=== PATIENT | male | born 1950 | race Caucasian/White ===

== ENCOUNTER → 2024-01-08 | Outpatient (CLI) | payer OTHER, SELFPAY ==
--- NOTE | 2024-01-08 10:52 | ECHOD_ITS ---
Reason For Study: CAD/ASHD Procedure This was a 2D Doppler, Color Flow transthoracic echocardiogram. Exam performed in department. Left Ventricle Normal LV size. Left ventricular systolic function is lower limits of normal. The estimated ejection fraction is 53 %. Stage 2 diastolic dysfunction. No regional wall motion abnormalities noted. Right Ventricle Normal RV size. Normal systolic function. Atria Normal left atrium. Normal right atrium. Mitral Valve Normal mitral valve. Tricuspid Valve Normal tricuspid valve. Mild tricuspid valve insufficiency. Pulmonary artery systolic pressure is 32 mmHg. Aortic Valve Trisinus/trileaflet aortic valve. Mild focal aortic valve calcification. Pulmonic Valve Normal pulmonic valve. Trivial pulmonic valve insufficiency. Great Vessels Normal aortic root. The pulmonary artery is normal size. Inferior vena cava collapse with respiration. Pericardium/Pleural No pericardial effusion. MMode/2D Measurements & Calculations LVIDd: 5.0 cm IVSd: 0.94 cm Ao root diam: 3.2 cm LVIDs: 3.8 cm LVPWd: 1.0 cm RVDd: 3.8 cm FS: 24.7 % LAV(MOD-bp): 37.8 ml LVAd ap4: 31.4 cm2 SV(MOD-sp4): 54.9 ml LAV(MOD-bp) Indexed: 20.2 ml/m2 LVLd ap4: 7.8 cm LAV(MOD-sp2): 39.0 ml EDV(MOD-sp4): 106.5 ml LAV(MOD-sp4): 34.3 ml EDV(sp4-el): 107.4 ml LVAs ap4: 20.0 cm2 LVLs ap4: 6.6 cm ESV(MOD-sp4): 51.6 ml ESV(sp4-el): 51.2 ml EF(MOD-sp4): 51.5 % EF(sp4-el): 52.3 % SV(sp4-el): 56.2 ml LA A4 area: 14.9 cm2 LA dimension(2D): 3.4 cm RA A4 area: 13.6 cm2 TAPSE: 1.8 cm Time Measurements MV dec time: 0.20 sec Doppler Measurements & Calculations MV E max alex: 75.6 cm/sec Lat Peak E' Alex: 10.7 cm/sec Med Peak E' Alex: 10.0 cm/sec MV A max alex: 70.8 cm/sec E/E' lat: 7.1 E/E' med: 7.6 MV E/A: 1.1 Ao V2 max: 113.4 cm/sec LV V1 max: 93.7 cm/sec PA V2 max: 106.4 cm/sec Ao max P.1 mmHg LV V1 max P.5 mmHg TR max alex: 264.1 cm/sec TR max P.9 mmHg ECHO/Echo Complete Interpretation Summary Normal LV size. Left ventricular systolic function is lower limits of normal. The estimated ejection fraction is 53 %. Stage 2 diastolic dysfunction. The global longitudinal strain is mildly abnormal. The global longitudinal stra in = -16.2% (abnormal). Ordering Physician: Jose Leyva Referring Physician: KIRSTEN ORELLANA Performed By: Jaylin Gomez RDCS
[2024-01-08 13:28] LABS: ALB/GLOB Ratio 0.9 RATIO (0.9-2.4); AST(SGOT) 18 U/L (15-37); Alanine Aminotransfer ALT/SGPT 21 U/L (16-61); Albumin, Serum 3.5 g/dL (3.2-5.0); Alkaline Phosphatase 123 U/L (45-117); Anion Gap 5 (5-15); BUN 17 mg/dL (7-18); BUN/Creat Ratio 16.2 RATIO (10-20); Calcium,Total 8.8 mg/dL (8.5-10.1); Chloride 108 mmol/L (98-107); Creatinine, Serum 1.05 mg/dL (0.70-1.30); EST Glomerular Filtration Rate 73 mL/min (>60); Est Glom Filt Rate - Afr Amer 88 mL/min (>60); Globulin 3.7 g/dL (2.2-4.2); Glucose 99 mg/dL (74-106); Potassium 4.1 mmol/L (3.5-5.1); Protein, Total 7.2 g/dL (6.4-8.2); Sodium Level 141 mmol/L (136-145)
[2024-01-08 13:37] LABS: Hepatitis C Antibody Non-Reactive (Nonreactive)
--- OUTSIDE RECORDS SUMMARY | 2024-01-08 19:09 | XMS RPT_ITS | CCD ---
Author Name Unknown Address [address] [facility] [address] [place] [address] Organization [facility] Care Team Providers Care Manager Operations Name Role Phone Lamonte Orellana Primary Care Provider [phone] Lamonte Orellana Unavailable Unavailable Lamonte Orellana Primary Care Provider Dandy Conroy Unavailable Mcginnis II, Mina Unavailable Unavailable Lamonte Orellana Unavailable Unavailable Unavailable Lamonte Orellana Unavailable Moomaw, Leland I Unavailable Unavailable CarlosessJessaBrandon Unavailable Mcginnis, Mina Unavailable Lamonte Orellana MD Primary Care Provider Dandy Conroy MD Unavailable [phone] DANDY CONROY Referring Unavailable DANDY CONROY Attending Unavailable LAMONTE ORELLANA Primary Care UnavailDANDY Valente Attending Unavailable LAMONTE ORELLANA Primary Care UnavailDANDY Valente Attending Unavailable LAMONTE ORELLANA Primary Care UnavailDANDY Valente Attending Unavailable LAMONTE ORELLANA Primary Care UnavailLamonte Reynoso MD Primary Care Provider [phone] Lamonte Orellana MD Unavailable Dr. Lamonte Orellana Primary Care Unav ailable VAMSHI BARON Attending Unavailable VAMSHI BARON Attending Unavailable Dr. Lamonte Orellana Primary Care Unav ailLAMONTE aShu Primary Care Unavailable Alem Wilcox Attending Unavailable Bennett Butler, Dr. Vamshi Hernandez Referring Unavailable Riki, Dr. Lamonte Flores Primary Care Unav ailable Riki, Dr. Lamonte Flores Primary Care Unav ailable Bennett Butler, Dr. Vamshi Hernandez Attending Unavailable Bennett Butler, Dr. Vamshi Hernandez Referring Unavailable Riki, Dr. Lamonte Flores Primary Care Unav ailable Riki, Dr. Lamonte Flores Referring Unav ailable Bennett Butler, Dr. Vamshi Hernandez Attending Unavailable Lamonte Orellana MD Unavailable [phone] Lamonte Orellana MD Primary Care Provider ALEM WILCOX Attending Unavailable LAMONTE ORELLANA Primary Care Unavailable LAMONTE ORELLANA Attending Unavailable LAMONTE ORELLANA Primary Care Unavailable ALEM WILCOX Referring Unavailable LAMONTE ORELLANA Primary Care Unavailable Medications Current Medications Medication Drug Class(es) Dates Sig (Normalized) Sig (Original) aspirin 81 mg delayed release oral tablet (20 sources) Platelet Aggregation Inhibitor, Nonsteroidal Anti-inflammatory Drug Start: 09-20-2019 take 1 tablet by mouth once daily aspirin 81 mg EC tablet Take 1 tablet (81 mg) by mouth once daily. 0 09/20/2019 Active Completed/Discontinued Medications Medication Drug Class(es) Dates Sig (Normalized) Sig (Original) acetaminophen 325 mg / HYDROcodone bitartrate 5 mg oral tablet (1 source) Opioid Agonist Start: 03-14-2020 take 1 tablet by mouth every six hours as needed [place] 5 mg-325 mg oral tablet ; 1 tab(s) orally every 6 hours, As Needed Quantity: 24 Refills: 0 Ordered: 14-Mar-2020 McginnisMina banuelos Start: 14-Mar-2020 Status: Completed Generic Substitution Allowed Comments: Caution federal law prohibits the transfer of this drug to any person other than the person for whom it was prescribed.May cause drowsiness. Alcohol may intensify this effect. Use care when operating dangerous machinery.This product contains acetaminophen. Do not use with any other product containing acetaminophen to prevent possible liver damage.Using more of this medication than prescribed may cause serious breathing problems. Problems Active Problems Problem Classification Problem Date Documented Date Episodic/Chronic Aortic; peripheral; and visceral artery aneurysms (18 sources) Abdominal aortic aneurysm without rupture; Translations: [Abdominal aortic aneurysm, without rupture] Onset: 06-18-2021 Resolved: 04-03-2023 Chronic Cancer of bladder (20 sources) Malignant tumor of urinary bladder; Translations: [Malignant neoplasm of bladder, part unspecified] Onset: 03-27-2023 04-03-2023 Chronic Coronary atherosclerosis and other heart disease (20 sources) Coronary arteriosclerosis in [place] artery; Translations: [Coronary arteriosclerosis] Onset: 07-19-2019 Resolved: 04-03-2023 07-19-2019 Chronic Diseases of mouth; excluding dental (1 source) Bleeding from mouth; Translations: [Other and unspecified diseases of the oral soft tissues] 06-15-2021 Episodic Disorders of lipid metabolism (20 sources) Mixed hyperlipidemia; Translations: [Hyperlipidemia] Onset: 03-27-2023 Resolved: 04-03-2023 05-29-2020 Chronic Esophageal disorders (20 sources) Gastroesophageal reflux disease; Translations: [Esophageal reflux] Onset: 03-27-2023 04-03-2023 Chronic Essential hypertension (20 sources) Benign essential hypertension; Translations: [Essential hypertension] Onset: 06-29-2021 Resolved: 04-03-2023 05-29-2020 Chronic Hyperplasia of prostate (20 sources) Benign prostatic hyperplasia; Translations: [Hypertrophy (benign) of prostate without urinary obstruction and other lower urinary tract symptom (LUTS)] Onset: 03-27-2023 04-03-2023 Chronic Inflammatory conditions of male genital organs (18 sources) Balanitis; Translations: [Balanoposthitis] Onset: 04-02-2023 04-02-2023 Chronic Osteoarthritis (20 sources) Osteoarthritis; Translations: [Osteoarthrosis, unspecified whether generalized or localized, site unspecified] Onset: 03-27-2023 03-27-2023 Chronic Peripheral and visceral atherosclerosis (1 source) Atherosclerosis of renal artery; Translations: [Atherosclerosis of renal artery] Onset: 12-10-2022 Chronic Unclassified (1 source) History of cardiac catheterization; Translations: [Status post left heart catheterization] Unclassified (2 sources) SWALLOWING BLOOD 06-15-2021 Past or Other Problems Problem Classification Problem Date Documented Da te Episodic/Chronic Biliary tract disease (11 sources) Gallstone; Translations: [Calculus of gallbladder without mention of cholecystitis, without mention of obstruction] Onset: 12-10-2022 04-02-2023 Episodic Blindness and vision defects (4 sources) Bilateral regular astigmatism; Translations: [Regular astigmatism, bilateral] Onset: 06-29-2021 04-02-2023 Episodic Calculus of urinary tract (20 sources) Kidney stone; Translations: [Calculus of kidney] Onset: 12-10-2022 04-02-2023 Episodic Cardiac dysrhythmias (5 sources) Bradycardia; Translations: [Bradycardia, unspecified] Onset: 06-18-2021 Episodic Gastrointestinal hemorrhage (2 sources) Hematochezia; Translations: [Melena] Onset: 12-26-2008 04-02-2023 Episodic Genitourinary symptoms and ill-defined conditions (20 sources) Blood in urine; Translations: [Hematuria, unspecified] Onset: 04-02-2023 04-02-2023 Episodic Neoplasms of unspecified nature or uncertain behavior (19 sources) Neoplasm of bladder; Translations: [Neoplasm of unspecified nature of bladder] Onset: 04-02-2023 Resolved: 04-03-2023 04-03-2023 Episodic Other eye disorders (2 sources) H/O: L cataract extraction; Translations: [Cataract extraction status, left eye] Onset: 08-10-2021 04-02-2023 Episodic Other eye disorders (2 sources) H/O: R cataract extraction; Translations: [Cataract extraction status, right eye] Onset: 08-10-2021 04-02-2023 Episodic Other screening for suspected conditions (not mental disorders or infectious disease) (20 sources) Stool DNA-based colorectal cancer screening positive; Translations: [Abnormal feces] Onset: 09-28-2018 04-02-2023 Episodic Other skin disorders (17 sources) Feeling of lump in throat; Translations: [Swelling, mass, or lump in head and neck] Onset: 04-02-2023 04-02-2023 Episodic Residual codes; unclassified (17 sources) Persistent insomnia; Translations: [Persistent disorder of initiating or maintaining sleep] Onset: 04-02-2023 04-02-2023 Episodic Unclassified (7 sources) Patient encounter status; Translations: [Colon cancer screening] Unclassified (2 sources) Onset: 04-03-2023 04-03-2023 Unclassified (1 source) Abdominal aortic aneurysm, without rupture, unspecified; Translations: [Abdominal aortic aneurysm, without rupture, unspecified] Onset: 12-10-2022 Unclassified (2 sources) Abdominal aortic aneurysm, without rupture, unspecified (CMS/HCC); Translations: [Abdominal aortic aneurysm, without rupture, unspecified (CMS/HCC)] Onset: 10-09-2023 NEGATED: Highlighted row has not occurred!Residual codes; unclassified (6 sources) Disease Episodic Results Test Name Value Interpretation Reference Range Facil ity Vital Signs Date Time Vital Sign Value Performing Clinician Faci lity 04-21-2023 13:02-0400 Body height 172.72 cm Lamonte Orellana Work Phone: BG-Tsqbzfdxgd-Ibkpb nd [address] Work Phone: 04-21-2023 13:02-0400 Body mass index (BMI) [Ratio] 24.48 kg/m2 Lamonte Orellana Work Phone: IP-Lvzilkktys-Dxahp nd [address] Work Phone: 04-21-2023 13:02-0400 Body surface area Derived from formula 1.86 m2 Lamonte Orellana Work Phone: QI-Qrlmcjqiuu-Gxffj nd [address] Work Phone: 04-21-2023 13:02-0400 Body weight 73.03 kg Lamonte Orellana Work Phone: YD-Qrnaghlbbt-Mmqew nd [address] Work Phone: 04-21-2023 13:02-0400 Diastolic blood pressure 60 mm[Hg] Lamonte Orellana Work Phone: QV-Olnuivqevb-Iidyf nd [address] Work Phone: 04-21-2023 13:02-0400 Heart rate 73 /min Lamonte Orellana Work Phone: AK-Bzicxbdvjf-Fyjkn nd [address] Work Phone: 04-21-2023 13:02-0400 SaO2% (BldA) [Mass fraction] 96 % Lamonte Orellana Work Phone: QR-Eudxdphshm-Tomjh ne [address] Work Phone: 04-21-2023 13:02-0400 Systolic blood pressure 112 mm[Hg] Lamonte Orellana Work Phone: MM-Cughdwmnom-Ohqwg ne [address] Work Phone: 04-03-2023 10:06-0400 Body height 172.7 cm Lamonte Orellana MD Work Phone: [facility] 04-03-2023 10:06-0400 Body mass index (BMI) [Ratio] 24.54 kg/m2 Lamonte Orellana MD Work Phone: [facility] 04-03-2023 10:06-0400 Body weight 73.21 kg Lamonte Orellana MD Work Phone: [facility] 04-03-2023 10:06-0400 Diastolic blood pressure 70 mm[Hg] Lamonte Orellana MD Work Phone: [facility] 04-03-2023 10:06-0400 Heart rate 55 /min Lamonte Orellana MD Work Phone: [facility] 04-03-2023 10:06-0400 SaO2% (BldA) [Mass fraction] 96 % Lamonte Orellana MD Work Phone: [facility] 04-03-2023 10:06-0400 Systolic blood pressure 120 mm[Hg] Lamonte Orellana MD Work Phone: [facility] 10-22-2022 10:31-0500 Body height 172.72 cm Lamonte Orellana Work Phone: ES-Dggnviihiu-Ygqex [address] Work Phone: 10-22-2022 10:31-0500 Body mass index (BMI) [Ratio] 25.24 kg/m2 Lamonte Orellana Work Phone: MB-Njgzxjjgqm-Ryqat nd [address] Work Phone: 10-22-2022 10:31-0500 Body surface area Derived from formula 1.89 m2 Lamonte Orellana Work Phone: IA-Eqbjzoaaqe-Gqvfc nd [address] Work Phone: 10-22-2022 10:31-0500 Body weight 75.3 kg Francoisvince Orellana Work Phone: XJ-Lmbmpoahup-Kmmxs nd [address] Work Phone: 10-22-2022 10:31-0500 Diastolic blood pressure 78 mm[Hg] Francoisvince Orellana Work Phone: OL-Oghdefgwdk-Ecgpq nd [address] Work Phone: 10-22-2022 10:31-0500 Heart rate 66 /min Francoisvince Orellana Work Phone: MX-Rzmqbtvhkd-Oepex nd [address] Work Phone: 10-22-2022 10:31-0500 SaO2% (BldA) [Mass fraction] 99 % Lamonte Orellana Work Phone: VQ-Ueszamrtre-Lmiuu nd [address] Work Phone: 10-22-2022 10:31-0500 Systolic blood pressure 136 mm[Hg] Francoisvince Nadia Orellana Work Phone: LI-Ombkthkxye-Sdtnm nd [address] Work Phone: 04-23-2022 11:23-0400 Body height 172.72 cm Francoisvince Nadia Orellana Work Phone: YG-Psclhhnbfs-Swmve [address] Work Phone: 04-23-2022 11:23-0400 Body mass index (BMI) [Ratio] 24.63 kg/m2 Francoisvince Nadia Orellana Work Phone: RV-Jmdkwcfsaj-Xmjbj [address] Work Phone: 04-23-2022 11:23-0400 Body surface area Derived from formula 1.87 m2 Lamonte Orellana Work Phone: NZ-Gtmryzrego-Ghevz [address] Work Phone: 04-23-2022 11:23-0400 Body weight 73.48 kg Lamonte Orellana Work Phone: CT-Osrxozvxhq-Liylk [address] Work Phone: 04-23-2022 11:23-0400 Diastolic blood pressure 78 mm[Hg] Lamonte Orellana Work Phone: PH-Fnufenklre-Ejpwi [address] Work Phone: 04-23-2022 11:23-0400 Heart rate 56 /min Lamonte Orellana Work Phone: SY-Byegrhbfjn-Ohuld [address] Work Phone: 04-23-2022 11:23-0400 SaO2% (BldA) [Mass fraction] 98 % Lamonte Orellana Work Phone: AW-Rwhkjhnqkt-Iwknm [address] Work Phone: 04-23-2022 11:23-0400 Systolic blood pressure 140 mm[Hg] Lamonte Orellana Work Phone: VJ-Udgskwunyk-Qxchv [address] Work Phone: 04-03-2022 09:05-0400 Body height 170.18 cm Lamonte Orellana Work Phone: -[facility] Work Phone: 04-03-2022 09:05-0400 Body mass index (BMI) [Ratio] 25.4 kg/m2 Lamonte Orellana Work Phone: -[facility] Work Phone: 04-03-2022 09:05-0400 Body surface area Derived from formula 1.85 m2 Lamonte Orellana Work Phone: [employer] [facility] Work Phone: 04-03-2022 09:05-0400 Body weight 73.57 kg Lamonte Orellana Work Phone: [employer] [employer] [facility] Work Phone: 04-03-2022 09:05-0400 Diastolic blood pressure 80 mm[Hg] Lamonte Orellana Work Phone: [facility] [employer] [facility] Work Phone: 04-03-2022 09:05-0400 Heart rate 57 /min Lamonte Orellana Work Phone: [employer] [facility] Work Phone: 04-03-2022 09:05-0400 SaO2% (BldA) [Mass fraction] 97 % Lamonte Orellana Work Phone: [employer] [employer] [facility] Work Phone: 04-03-2022 09:05-0400 Systolic blood pressure 150 mm[Hg] Lamonte Orellana Work Phone: [employer] [facility] Work Phone: 03-27-2022 11:03-0400 Body height 170.18 cm Lamonte Orellana Work Phone: [employer] [employer] [facility] Work Phone: 03-27-2022 11:03-0400 Body mass index (BMI) [Ratio] 25.55 kg/m2 Lamonte Orellana Work Phone: [employer] [facility] Work Phone: 03-27-2022 11:03-0400 Body surface area Derived from formula 1.85 m2 Lamonte Orellana Work Phone: [employer] [facility] Work Phone: 03-27-2022 11:03-0400 Body weight 74 kg Lamonte Orellana Work Phone: [employer] Work Phone: 03-27-2022 11:03-0400 Diastolic blood pressure 74 mm[Hg] Lamonte Orellana Work Phone: [facility] Work Phone: 03-27-2022 11:03-0400 Heart rate 70 /min Lamonte Orellana Work Phone: [facility] Work Phone: 03-27-2022 11:03-0400 Systolic blood pressure 129 mm[Hg] Lamonte Orellana Work Phone: [facility] [employer] [facility] Work Phone: 10-24-2021 10:27-0500 Body height 170.18 cm Lamonte Orellana Work Phone: OD-Gdpgdrx-Vcbzydr Work Phone: 10-24-2021 10:27-0500 Body mass index (BMI) [Ratio] 25.86 kg/m2 Lamonte Orellana Work Phone: BX-Ezqkvtu-Ikiqvqz Work Phone: 10-24-2021 10:27-0500 Body surface area Derived from formula 1.86 m2 Lamonte Orellana Work Phone: QY-Zycooyx-Qfxfcmz Work Phone: 10-24-2021 10:27-0500 Body weight 74.9 kg Lamonte Orellana Work Phone: XS-Eikxlnd-Ujtbvbd Work Phone: 10-24-2021 10:27-0500 Diastolic blood pressure 78 mm[Hg] Lamonte Orellana Work Phone: BZ-Zhjjzxy-Yavgkmw Work Phone: 10-24-2021 10:27-0500 Heart rate 70 /min Lamonte Orellana Work Phone: UB-Bkzmtio-Ztzjthr Work Phone: 10-24-2021 10:27-0500 Systolic blood pressure 128 mm[Hg] Francoistayaer Nadia Gonzalezd Work Phone: MZ-Rstpphs-Appovgf Work Phone: 06-18-2021 12:14-0400 Diastolic blood pressure 71 mm[Hg] Dandy Conroy MD Work Phone: [facility] 06-18-2021 12:14-0400 Systolic blood pressure 147 mm[Hg] Dandy Conroy MD Work Phone: [facility] 06-18-2021 12:13-0400 Body height 170.2 cm Dandy Conroy MD Work Phone: [facility] 06-18-2021 12:13-0400 Body mass index (BMI) [Ratio] 24.43 kg/m2 Dandy Conroy MD Work Phone: [facility] 06-18-2021 12:13-0400 Body weight 70.76 kg Dandy Conroy MD Work Phone: [facility] 06-18-2021 12:13-0400 Heart rate 48 /min Dandy Conroy MD Work Phone: [facility] 06-18-2021 12:13-0400 SaO2% (BldA) [Mass fraction] 94 % Dandy Conroy MD Work Phone: [facility] 06-15-2021 20:30-0400 Diastolic blood pressure 79 mm[Hg] Lamonte Orellana Other Phone: Health system 06-15-2021 20:30-0400 Heart rate 53 /min Christopher Orellana Other Phone: [facility] system 06-15-2021 20:30-0400 Respiratory rate 16 /min Lamonte Gonzalezd Other Phone: Health system 06-15-2021 20:30-0400 SaO2% (BldA) [Mass fraction] 96 % Lamonte Orellana Other Phone: Health system 06-15-2021 20:30-0400 Systolic blood pressure 162 mm[Hg] Lamonte Orellana Other Phone: [facility] system 06-15-2021 18:25-0400 Body height 170.1 cm Lamonte Orellana Other Phone: [facility] system 06-15-2021 18:25-0400 Body temperature 98.24 [degF] Lamonte Orellana Other Phone: [facility] 06-15-2021 18:25-0400 Body weight 72.7 kg Lamonte Orellana Other Phone: Health system 06-05-2021 08:35-0400 Body height 170.18 cm Lamonte Orellana Work Phone: [facility] [employer] [facility] Work Phone: 06-05-2021 08:35-0400 Body mass index (BMI) [Ratio] 24.47 kg/m2 Lamonte Orellana Work Phone: [facility] [employer] [facility] Work Phone: 06-05-2021 08:35-0400 Body surface area Derived from formula 1.82 m2 Lamonte Orellana Work Phone: [facility] [employer] [facility] Work Phone: 06-05-2021 08:35-0400 Body temperature 97.3 [degF] Lamonte Orellana Work Phone: [facility] [employer] [facility] Work Phone: 06-05-2021 08:35-0400 Body weight 70.88 kg Lamonte Orellana Work Phone: [facility] [employer] [facility] Work Phone: 06-05-2021 08:35-0400 Diastolic blood pressure 64 mm[Hg] Lamonte Orellana Work Phone: -[facility] [employer] [facility] Work Phone: 06-05-2021 08:35-0400 Heart rate 73 /min Lamonte Orellana Work Phone: -[facility] [employer] [facility] Work Phone: 06-05-2021 08:35-0400 SaO2% (BldA) [Mass fraction] 99 % Lamonte Orellana Work Phone: -[facility] [employer] [facility] Work Phone: 06-05-2021 08:35-0400 Systolic blood pressure 110 mm[Hg] Lamonte Orellana Work Phone: [place] [facility] Work Phone: 04-19-2021 15:26-0400 Body height 170.18 cm Lamonte Orellana Work Phone: [facility] [address] Work Phone: 04-19-2021 15:26-0400 Body mass index (BMI) [Ratio] 25.24 kg/m2 Lamonte Orellana Work Phone: [facility] [address] Work Phone: 04-19-2021 15:26-0400 Body surface area Derived from formula 1.84 m2 Lamonte Orellana Work Phone: [facility] [address] Work Phone: 04-19-2021 15:26-0400 Body weight 73.09 kg Lamonte Orellana Work Phone: [facility] [address] Work Phone: 04-19-2021 15:26-0400 Diastolic blood pressure 74 mm[Hg] Lamonte Orellana Work Phone: [facility] [address] Work Phone: 04-19-2021 15:26-0400 Heart rate 71 /min Lamonte Orellana Work Phone: HU-Ejrklnw-Vbwbstyd [facility] [address] Work Phone: 04-19-2021 15:26-0400 Systolic blood pressure 127 mm[Hg] Lamonte Orellana Work Phone: IK-Szvsizu-Sdzajlzf [facility] [address] Work Phone: 05-29-2020 09:46-0400 BMI (Body Mass Index) 26.74 kg/m2 Dandy On license of [facility] 05-29-2020 09:46-0400 Body weight 77.43 kg Dandy On license of [facility] 05-29-2020 09:46-0400 BP Diastolic 72 mm[Hg] [facility] 05-29-2020 09:46-0400 BP Systolic 126 mm[Hg] Dandy On license of [facility] 05-29-2020 09:46-0400 Height 170.2 cm Dandy On license of [facility] 05-29-2020 09:46-0400 Pulse (Heart Rate) 63 /min [facility] 05-29-2020 09:46-0400 Pulse Oximetry 94 % [facility] 04-10-2020 12:25-0400 BMI (Body Mass Index) 26.78 kg/m2 Mina Mcginnis II QY-Huuifml-Thjmstw Work Phone: 04-10-2020 12:25-0400 Body weight 77.57 kg Mina Mcginnis II EO-Edgchkh-Iqmyu nd Work Phone: 04-10-2020 12:25-0400 BSA (Body Surface Area) 1.89 m2 Mina Mcginnis II YA-Bjefxru-Achbolc Work Phone: 04-10-2020 12:25-0400 Height 170.18 cm Mina Mcginnis II XC-Ldxqfnw-Qabok nd Work Phone: 04-03-2020 11:54-0400 BMI (Body Mass Index) 26.53 kg/m2 Mina Mcginnis II IK-Yoqtzjs-Vhjcqdm Work Phone: 04-03-2020 11:54-0400 Body weight 77.57 kg Mina Mcginnis II UH-Btoqpkq-Opmdx nd Work Phone: 04-03-2020 11:54-0400 BP Diastolic 80 mm[Hg] Mina Mcginnis II AY-Hbvqgoi-Yiwbz nd Work Phone: 04-03-2020 11:54-0400 BP Systolic 150 mm[Hg] Mina Mcginnis II RR-Wlxujfm-Spvrz nd Work Phone: 04-03-2020 11:54-0400 BSA (Body Surface Area) 1.9 m2 Mina Mcginnis II OO-Msnitaw-Okpuhty Work Phone: 04-03-2020 11:54-0400 Height 171 cm Mina Mcginnis II ZD-Tedkwew-Ztcgj nd Work Phone: 04-03-2020 11:54-0400 Pulse (Heart Rate) 82 /min Mina Mcginnis II EZ-Kskxykl-Vt hland Work Phone: 02-14-2020 11:51-0400 BMI (Body Mass Index) 27.34 kg/m2 Lamonte Orellana EA-Wcjrzvi-Pujbzzh Work Phone: 02-14-2020 11:51-0400 Body weight 78.08 kg Lamonte Orellana NS-Gvpjaqk-Dnqi and Work Phone: 02-14-2020 11:51-0400 BP Diastolic 78 mm[Hg] Lamonte Orellana PU-Omuijxs-Npoj and Work Phone: 02-14-2020 11:51-0400 BP Systolic 138 mm[Hg] Lamonte Orellana [facility]-Hyhayse-Jwja and Work Phone: 02-14-2020 11:51-0400 BSA (Body Surface Area) 1.89 m2 Lamonte Orellana VO-Mgxcuqj-Dskvswp Work Phone: 02-14-2020 11:51-0400 Height 169 cm Lamonte Orellana WE-Usjtgzr-Zsbl and Work Phone: 02-14-2020 11:51-0400 Pulse (Heart Rate) 78 /min Lamonte Orellana VQ-Xeqkiji-O shland Work Phone: 07-19-2019 11:07-0400 BMI (Body Mass Index) 25.69 kg/m2 Dandy Conroy [facility] 07-19-2019 11:07-0400 Body weight 74.39 kg Dandy Conroy [facility] 07-19-2019 11:07-0400 BP Diastolic 73 mm[Hg] Dandy Conroy [facility] 07-19-2019 11:07-0400 BP Systolic 142 mm[Hg] Dandy Conroy [facility] 07-19-2019 11:07-0400 Height 170.2 cm Dandy Conroy [facility] 07-19-2019 11:07-0400 Pulse (Heart Rate) 50 /min Dandy Conroy [facility] 07-19-2019 11:07-0400 Pulse Oximetry 97 % Dandy Georgina [facility] Encounters Encounter Date Encounter Type Care Provider Facility Start: 10-13-2023 End: 10-13-2023 ambulatory ALEM Allison [facility] Ambulatory Start: 10-09-2023 End: 10-10-2023 ambulatory ALEM Allison [facility] Start: 10-09-2023 End: 10-09-2023 Subsequent hospital visit by physician Praveen Bullock [facility] Procedures Date Procedure Procedure Detail Performing Clinician Start: 10-09-2023 VASC US AORTA ILIAC DUPLEX COMPLETE ALEM WILCOX Start: 10-09-2023 Dup-scan aorta ivc i liac vascl/bpgs complete Alem Wilcox PAINTER AND PAPERHANGER APPRENTICE-WORKFORCE MANAGER, DNP Work Phone: Start: 04-01-2023 Comprehensive metabo lic 2000 panel - Serum or Plasma LAMONTE ORELLANA Start: 04-01-2023 Lipid panel KIRSTEN ORELLANA Start: 04-01-2023 PROSTATE SPECIFIC AN TIGEN, SCREEN LAMONTE ORELLANA Start: 04-01-2023 Lipid 1996 panel - S cristo or Plasma Lamonte Orellana MD Work Phone: Start: 10-22-2022 Follow-up visit Start: 06-18-2021 Ecg routine ecg w/le ast 12 lds w/i&r Dandy Conroy MD Work Phone: Start: 02-14-2020 Ultrasound Kidney Bilateral Lamonte Orellana Start: 12-30-2019 Colonoscopy Jessica Mike gold Start: 07-02-2019 Echocardiography Start: 09-21-2018 [object Object] Plan of Treatment Date Care Activity Detail Author Start: 10-25-2029 Screening for malignant neoplasm of colon [facility] Start: 06-27-2029 DTaP/Tdap/Td Vaccines (3 - Td or Tdap) DTaP/Tdap/Td Vaccines (3 - Td or Tdap) [facility] Start: 04-01-2028 Lipid panel Lipid Panel [facility] Start: 05-12-2026 DTaP/Tdap/Td Vaccines (2 - Td or Tdap) DTaP/Tdap/Td Vaccines (2 - Td or Tdap) [facility] Start: 05-12-2026 Tetanus vaccination Tetanus: Every 10yrs [facility] Start: 04-05-2024 End: 04-05-2024 Patient encounter procedure [facility] Start: 04-04-2024 Medicare Annual Wellness Visit Medicare Annual Wellness Visit (AWV) [facility] [facility] Start: 04-03-2024 End: 04-03-2024 Comprehensive metabolic 2000 panel - Serum or Plasma Comprehensive Metabolic Panel Lab Routine Primary hypertension Hyperlipemia, mixed Expected: 04/03/2024 (Approximate), Expires: 04/03/2024 [facility] Service Area Work Phone: Immunizations Immunization Date Immunization Notes Care Provider Edith abebe 09-10-2022 influenza virus vaccine, unspecified formulation [address] Work Phone: 09-05-2016 pneumococcal conjuga te vaccine, 13 valent Lamonte Orellana [facility] Work Phone: Payers Date Payer Category Payer Medicare MEDICARE MEDICAR E PART A & B xxxxxxxxxx 2013-Present [place] xxxxxxxxxx [id number] 2013 Medicare MEDICARE MEDICAR E PART A & B xxxxxxxxxxx 2013-Present [place] xxxxxxxxxxx [id number] 2013 Medicare [id number] 2013 Medicare [id number] 2013 Medicare MEDICARE MEDICAR E PART A AND B [id number] 2013-Present [address] [place] [address] [id number] 2013 Unknown 1948 Unknown [id number] 1948 Unknown [id number] 1948 Unknown [id number] 1948 Unknown [id number] 1948 Unknown [id number] 9 1948 Unknown [id number] 9 1948 Unknown [id number] 5 1948 Unknown [id number] 1948 Unknown [id number] [id number] 1948 Unknown [id number] [id number] 1948 Unknown [id number] [id number] 4 1948 Unknown [id number] 4 1948 Unknown [id number] 3 Unknown [id number] Social History Date Type Detail Facility Start: 07-19-2019 End: 05-29-2020 Tobacco smoking status NHIS Current some day smoker [facility] Start: 07-19-2019 End: 04-03-2023 Alcohol intake Current drinker of alcohol (finding) [facility] Start: 07-19-2019 Tobacco Comment occasional cigar [facility] Start: 07-19-2019 Alcohol Comment 1-2x year [facility] Start: 1950 Sex Assigned At Not on file [facility] Start: 05-29-2020 End: 06-18-2021 Alcohol intake Ex-drinker (finding) [facility] Start: 03-24-2023 End: 10-09-2023 Exposure to SARS-CoV-2 (event) Not sure [facility] Start: 05-29-2020 End: 04-03-2023 Tobacco use and exposure Never used [facility] Start: 04-03-2023 Occasional tobacco smoker Occasional tobacco smoker [facility] [address] DO Work Phone: Tobacco smoking consumption unknown Health system Start: 04-03-2023 Tobacco smoking status NHIS Smokes tobacco daily [facility] History of tobacco use Cigar Smoker [facility] Work Phone: Start: 04-03-2023 Gender identity Not on file [facility] Work Phone: NEGATED: Highlighted row - - [facility] Work Phone: Medical Equipment Procedure Code Equipment Code Equipment Origin al Text Equipment Identifier Dates Lens, Intraocula r, [id number] 16.0 Lori Case [id number] Start: 07-26-2021 Functional Status Date Assessment Result Facility NEGATED: Highlighted row Functional performance Functional status health issues are not documented Disease [facility] Work Phone: Mental Status Date Assessment Result Facility NEGATED: Highlighted row Cognitive function [Interpretation] Cognitive status health issues are not documented Disease [facility] Work Phone: Clinical Notes 04-29-2021 to 04-03-2023 Assessment & Plan Note - Lamonte Orellana MD - 04/03/2023 12:50 PM EDTAssessment & Plan Note - Lamonte Orellana MD - 04/03/2023 12:50 PM EDTRaswetha Aguilera MA - 06/18/2021 12:09 PM EDT Note Date & Type Note Facility 04-03-2023 Evaluation + Plan note Associated Problem(s): Hyperlipemia, mixed Check blood testing, no change. [facility] Work Phone: 04-03-2023 Evaluation + Plan note Associated Problem(s): BPH (benign prostatic hyperplasia) Currently stable. [facility] Work Phone: 04-03-2023 Evaluation + Plan note Associated Problem(s): Bladder cancer (CMS/HCC) Needs to follow-up with urology, no current symptoms. [facility] Work Phone: 04-03-2023 Evaluation + Plan note Associated Problem(s): GERD (gastroesophageal reflux disease) Controlled with medication and diet, no change. [facility] Work Phone: 04-03-2023 Miscellaneous Notes Associated Problem(s): Hyperlipemia, mixed Check blood testing, no change. Associated Problem(s): BPH (benign prostatic hyperplasia) Currently stable. Associated Problem(s): Bladder cancer (CMS/HCC) Needs to follow-up with urology, no current symptoms. Associated Problem(s): GERD (gastroesophageal reflux disease) Controlled with medication and diet, no change. Associated Problem(s): AAA (abdominal aortic aneurysm) (CMS/HCC) Has seen vascular medicine in the past 6 months, aneurysm seems to be stable, no change. Associated Problem(s): CAD (coronary artery disease) No active current signs or symptoms, encouraged to be active and quit smoking, seen vascular medicine this past spring, no change. Associated Problem(s): Benign essential HTN Blood pressure under good control, check blood testing today, continue with current medication, gets medications filled at [facility]. documented in this encounter [facility] Work Phone: 04-03-2023 Evaluation + Plan note Associated Problem(s): AAA (abdominal aortic aneurysm) (CMS/HCC) Has seen vascular medicine in the past 6 months, aneurysm seems to be stable, no change. [facility] Work Phone: 04-03-2023 Evaluation + Plan note Associated Problem(s): CAD (coronary artery disease) No active current signs or symptoms, encouraged to be active and quit smoking, seen vascular medicine this past spring, no change. [facility] Work Phone: 04-03-2023 Evaluation + Plan note Associated Problem(s): Benign essential HTN Blood pressure under good control, check blood testing today, continue with current medication, gets medications filled at [facility]. [facility] Work Phone: 04-03-2023 History of Present illness Narrative Subjective Reason for Visit: Cleve Gonzáles Jr. is an 72 y.o. male here for a Medicare Wellness visit. Past Medical, Surgical, and Family History reviewed and updated in chart. Reviewed all medications by prescribing practitioner or clinical pharmacist (such as prescriptions, OTCs, herbal therapies and supplements) and documented in the medical record. HPI No headache, chest pain, shortness of breath, dizziness, lightheadedness, or edema Seen Vascular medicine in October, had CT of abdomen done Has not seen urology in over a year No nocturia, some urine flow issues Has not seen cardiology in a while Gets meds from [place], sees once a year Patient Care Team: Lamonte Orellana MD as PCP - General Lamonte Orellana MD as PCP - [facility] ACO Attributed Provider Review of Systems Constitutional: Negative for activity change, appetite change, fatigue and unexpected weight change. HENT: Negative for ear pain, nosebleeds, rhinorrhea, sneezing and trouble swallowing. Respiratory: Negative for cough, shortness of breath and wheezing. Cardiovascular: Negative for chest pain, palpitations and leg swelling. Gastrointestinal: Negative for abdominal distention, abdominal pain, constipation, diarrhea, nausea and vomiting. Genitourinary: Negative for difficulty urinating. Musculoskeletal: Negative for arthralgias. Skin: Negative for rash. Neurological: Negative for dizziness, light-headedness, numbness and headaches. Hematological: Negative for adenopathy. Psychiatric/Behavioral: Negative for behavioral problems. All other systems reviewed and are negative. Objective Vitals: BP 120/70 Pulse 55 Ht 1.727 m (5' 8 ) Wt 73.2 kg (161 lb 6.4 oz) SpO2 96% BMI 24.54 kg/m Physical Exam Vitals and nursing note reviewed. Constitutional: General: He is not in acute distress. Appearance: Normal appearance. He is not toxic-appearing. HENT: Head: Normocephalic and atraumatic. Right Ear: Tympanic membrane, ear canal and external ear normal. Left Ear: Tympanic membrane, ear canal and external ear normal. Nose: Nose normal. Mouth/Throat: Mouth: Mucous membranes are moist. Pharynx: Oropharynx is clear. Eyes: Extraocular Movements: Extraocular movements intact. Conjunctiva/sclera: Conjunctivae normal. Pupils: Pupils are equal, round, and reactive to light. Cardiovascular: Rate and Rhythm: Normal rate and regular rhythm. Pulmonary: Effort: Pulmonary effort is normal. Breath sounds: Normal breath sounds. Abdominal: General: Abdomen is flat. Bowel sounds are normal. Palpations: Abdomen is soft. Musculoskeletal: Cervical back: Normal range of motion and neck supple. Skin: General: Skin is warm and dry. Capillary Refill: Capillary refill takes less than 2 seconds. Neurological: General: No focal deficit present. Mental Status: He is alert and oriented to person, place, and time. Mental status is at baseline. Psychiatric: Mood and Affect: Mood normal. Behavior: Behavior normal. Assessment/Plan Problem List Items Addressed This Visit Circulatory CAD (coronary artery disease) Current Assessment & Plan No active current signs or symptoms, encouraged to be active and quit smoking, seen vascular medicine this past spring, no change. Relevant Orders Follow Up In Primary Care AAA (abdominal aortic aneurysm) ([facility]) Overview 4.2 cm 05/2021 Last Assessment & Plan: Stable on recent 4.2 cm 05/2021 Last Assessment & Plan: Stable on recent US Current Assessment & Plan Has seen vascular medicine in the past 6 months, aneurysm seems to be stable, no change. Relevant Orders Follow Up In Primary Care RESOLVED: Hypertension Overview Last Assessment & Plan: Good BP control Relevant Orders Follow Up In Primary Care Comprehensive Metabolic Panel Digestive GERD (gastroesophageal reflux disease) Current Assessment & Plan Controlled with medication and diet, no change. Relevant Orders Follow Up In Primary Care Genitourinary Bladder cancer (CMS/HCC) Current Assessment & Plan Needs to follow-up with urology, no current symptoms. Relevant Orders Follow Up In Primary Care BPH (benign prostatic hyperplasia) Current Assessment & Plan Currently stable. Relevant Orders Follow Up In Primary Care Other Hyperlipemia, mixed Current Assessment & Plan Check blood testing, no change. Relevant Orders Follow Up In Primary Care Comprehensive Metabolic Panel Lipid Panel Other Visit Diagnoses Routine general medical examination at health care facility - Primary Relevant Orders Follow Up In Primary Care Prostate cancer screening Relevant Orders Prostate Specific Antigen, Screen documented in this encounter [facility] Work Phone: 01-25-2023 History of Present illness Narrative Cleve Gonzáles is a 72-year-old male with a h/o AAA (4.7cm), BPH, coronary artery disease, GERD, hyperlipidemia, and osteoarthritis presenting for his six month follow-up.Cardiovascular hx includes:AAA-CT urography scan in January (2021) shows an AAA measuring 4.7cm in diameter with previous measurement of 4.4cm last year. Dedicated AAA ultrasound (September,) shows AAA measuring 3.9cm. 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 [facility] [address] Work Phone: 01-25-2022 History of Present illness Narrative Mr Gonzáles is a 72-year-old man with history of hyperlipidemia, hypertension, and bladder cancer who is presenting for follow-up of AAA.CT scan in January 2022 showed a AAA measuring 4.7x4.4 cm in AP diameter, previously measuring 4.4x4.1 cm last year.Denies abdominal pain, leg pain, chest pain or shortness of breath. No family history of aneurysms or sudden . [facility] [address] Work Phone: 10-16-2021 History of Present illness Narrative Mr Gonzáles is a 71-year-old man with history of hyperlipidemia, hypertension, and bladder cancer found to have AAA incidentally on CT urography for follow-up of bladder CA.Recent CT scan showed a AAA measuring 4.7x4.4 cm in AP diameter, previously measuring 4.4x4.1 cm last year.Denies abdominal pain, leg pain, chest pain or shortness of breath.No family history of aneurysms or sudden . [facility] Work Phone: 08-10-2021 Note HNO ID: [id number] Author: Napoleon Dobbs MD Service: ? Author Type: Physician Type: Progress Notes Filed: 08/10/2021 2:33 PM Note Text: ASSESSMENT/PLAN: 1. Status post cataract extraction and insertion of intraocular lens of left eye - ICD9: V45.61, V43.1, ICD10: Z98.42, Z96.1 (primary diagnosis) - Intraocular lens in good position, Left eye Current Ophthalmic Meds keTORolac (ACULAR) 0.5 % ophthalmic solution Use 1 Drop in the left eye four times daily. prednisoLONE acetate (PRED FORTE) 1 % ophthalmic suspension Use 1 Drop in the left eye four times daily. Continue: Systane Complete Artificial Tears - Use 1 Drop into both eyes three times a day. 2. Status post cataract extraction and insertion of intraocular lens of right eye - ICD9: V45.61, V43.1, ICD10: Z98.41, Z96.1 - Intraocular lens in good position, Right eye Current Ophthalmic Meds keTORolac (ACULAR) 0.5 % ophthalmic solution Use 1 Drop in the right eye three times daily. prednisoLONE acetate (PRED FORTE, ECONOPRED PLUS) 1 % ophthalmic suspension Use 1 Drop in the right eye three times daily. Continue Systane Complete Artificial Tears - Use 1 Drop into both eyes three times a day. 3. Benign essential hypertension - ICD9: 401.1, ICD10: I10 4. Bradycardia - ICD9: 427.89, ICD10: R00.1 - Manage care with primary care physician / Cardiology Napoleon Dobbs MD I have confirmed and edited as necessary the relevant ophthalmic history, review of systems, surgical history, and ophthalmological examination findings as obtained by the ophthalmic technical staff. I have seen and examined Cleve Gonzáles Jr.. I have discussed the examination findings, diagnosis, and treatment options with Cleve Gonzáles Jr. and/or his family. I have also reviewed and agree with the assessment and plan as stated above and agree with all its relevant components. I gave the patient the opportunity to ask questions about the findings, diagnosis, and treatment options. [facility] 08-06-2021 Note HNO ID: [id number] Author: Napoleon Dobbs MD Service: ? Author Type: Physician Type: Progress Notes Filed: 08/06/2021 4:16 PM Note Text: ASSESSMENT/PLAN: 1. Combined form of age-related cataract, left eye - ICD9: 366.19, ICD10: H25.812 (primary diagnosis) PHYSICAL EXAM: Vital Signs: Blood pressure 109/71, pulse 72. Respiratory: Normal breath sounds, no wheezing. CARD: Normal heart sounds 1 AND 2, normal sinus rhythm. Cataract Presurgical Documentation Cataract: Left eye Patient reported symptoms: Associated symptoms Positive for: Blurred Vision, decreased vision, floaters, difficulty with reading, difficulty with watching television, dryness, glare Negative for: Flashes, tearing, halos, burning Current Visual Acuity: Right Eye Distance SC 20/20 Left Eye Distance CC 20/50 Visual Function: Cleve Gonzáles Jr. states that the decline in vision from the cataract impedes the ability to read, watch television as well as other activities of daily living. Cleve Gonzáles Jr. has confirmed that he is no longer able to function adequately on a day-to-day basis because of his current visual condition. Further, it is my medical opinion that the cataract is the primary cause, or at least a significantly contributory cause of his visual dysfunction. With uncomplicated cataract surgery and lens implantation, it is my expectation that his visual function and quality of life will improve, significantly. The risks, benefits, alternatives, personnel and complications of cataract surgery with lens implantation were discussed with Cleve Gonzáles Jr. in detail. he appeared to understand and asked that I proceed with plans for surgery. Patient wishes to have traditional cataract surgery with basic Intraocular lens left eye 08/09/2021 Patient wishes to have cataract surgery with the option stated above. Patient understands that an intraocular lens implant does not necessarily replace the need for glasses. Patient understands that it is impossible for the surgeon to inform him/her of every possible complication that may occur. The surgeon has answered all of the patient's questions. Patient understands that if he/she has a mature or dense cataract, pseudoexfoliation cataract, or history of use of Flomax, he/she may require the use of Maluyugin Ring and/or Vision Blue during surgery. Patient understands the risks, benefits, and alternatives to surgery. Current Ophthalmic Meds fluorometholone (FML LIQUID FILM) 0.1 % ophthalmic suspension Use 1 Drop in the left eye three times daily. Systane Complete Artificial Tears - Use 1 Drop into both eyes three times a day. 2. Regular astigmatism of left eye - ICD9: 367.21, ICD10: H52.222 Patient understands the need for glasses for all near and intermediate vision including reading and computer work. He/she declines monovision. He/she was offered a Toric Intraocular lens to correct astigmatism, but he/she declines the Toric Intraocular lens. Patient understands that he/she will need glasses to correct residual astigmatism at all distances after cataract surgery. -Dr. Palumbo recommended monovision for patient with left eye for reading. After discussion with patient, patient would like both eyes for distance 3. Status post cataract extraction and insertion of intraocular lens of right eye - ICD9: V45.61, V43.1, ICD10: Z98.41, Z96.1 Use post op medications as directed: Current Ophthalmic Meds keTORolac (ACULAR) 0.5 % ophthalmic solution Use 1 Drop in the right eye four times daily. prednisoLONE acetate (PRED FORTE, ECONOPRED PLUS) 1 % ophthalmic suspension Use 1 Drop in the right eye four times daily. 4. Abdominal aortic aneurysm (AAA) without rupture (HCC) - ICD9: 441.4, ICD10: I71.4 5. Bradycardia - ICD9: 427.89, ICD10: R00.1 Continue care with Gas Worker Napoleon Dobbs MD I have confirmed and edited as necessary the relevant ophthalmic history, review of systems, surgical history, and ophthalmological examination findings as obtained by the ophthalmic technical staff. I have seen and examined Cleve Gonzáles Jr.. I have discussed the examination findings, diagnosis, and treatment options with Cleve Gonzáles Jr. and/or his family. I have also reviewed and agree with the assessment and plan as stated above and agree with all its relevant components. I gave the patient the opportunity to ask questions about the findings, diagnosis, and treatment options. [facility] 07-27-2021 Note HNO ID: [id number] Author: Napoleon Dobbs MD Service: ? Author Type: Physician Type: Progress Notes Filed: 07/27/2021 10:54 AM Note Text: ASSESSMENT/PLAN: 1. Status post cataract extraction and insertion of intraocular lens of right eye - ICD9: V45.61, V43.1, ICD10: Z98.41, Z96.1 (primary diagnosis) Use medications as directed: Current Ophthalmic Meds keTORolac (ACULAR) 0.5 % ophthalmic solution Use 1 Drop in the right eye four times daily for 7 days, then three times daily until 08/30/2021 prednisoLONE acetate (PRED FORTE, ECONOPRED PLUS) 1 % ophthalmic suspension Use 1 Drop in the right eye four times daily for 7 days, then three times daily until 08/30/2021 Systane Complete Artificial Tears - Use 1 Drop into both eyes three times a day. Patient to follow up in one week with Dr. Palumbo 2. Combined form of age-related cataract, left eye - ICD9: 366.19, ICD10: H25.812 Scheduled Cataract Surgery with Intraocular lens left eye on August 09, 2021 at [facility]. 3. Bradycardia - ICD9: 427.89, ICD10: R00.1 4. Abdominal aortic aneurysm (AAA) without rupture (HCC) - ICD9: 441.4, ICD10: I71.4 5. Benign essential hypertension - ICD9: 401.1, ICD10: I10 Napoleon Dobbs MD I have confirmed and edited as necessary the relevant ophthalmic history, review of systems, surgical history, and ophthalmological examination findings as obtained by the ophthalmic technical staff. I have seen and examined Cleve Gonzáles Jr.. I have discussed the examination findings, diagnosis, and treatment options with Cleve Gonzáles Jr. and/or his family. I have also reviewed and agree with the assessment and plan as stated above and agree with all its relevant components. I gave the patient the opportunity to ask questions about the findings, diagnosis, and treatment options. [facility] 07-17-2021 Note HNO ID: [id number] Author: Napoleon Dobbs MD Service: ? Author Type: Physician Type: Progress Notes Filed: 07/17/2021 1:53 PM Note Text: ASSESSMENT/PLAN: 1. Combined forms of age-related cataract of right eye - ICD9: 366.19, ICD10: H25.811 (primary diagnosis) Patient wishes to have traditional cataract surgery with basic Intraocular lens right eye scheduled on 07/26/21 at [facility]. Patient wishes to have cataract surgery with the option stated above. Patient understands that an intraocular lens implant does not necessarily replace the need for glasses. Patient understands that it is impossible for the surgeon to inform him/her of every possible complication that may occur. The surgeon has answered all of the patient's questions. Patient understands that if he/she has a mature or dense cataract, pseudoexfoliation cataract, or history of use of Flomax, he/she may require the use of Maluyugin Ring and/or Vision Blue during surgery. Patient understands the risks, benefits, and alternatives to surgery. Cataract Presurgical Documentation Cataract: Right eye (OD) Patient reported symptoms: Associated symptoms Positive for: Blurred Vision, difficulty with driving, difficulty with reading, difficulty with watching television, halos, glare, starbursts Negative for: Eye Redness, foreign body sensation, flashes, tearing Current Visual Acuity: Right Eye Distance CC 20/60 Left Eye Distance CC 20/50 Glare Testing: Right Eye Medium 20/80 Left Eye Medium 20/80 Visual Function: Cleve Gonzáles Jr. states that the decline in vision from the cataract impedes the ability to drive and to read as well as other activities of daily living. Cleve Gonzáles Jr. has confirmed that he is no longer able to function adequately on a day-to-day basis because of his current visual condition. Further, it is my medical opinion that the cataract is the primary cause, or at least a significantly contributory cause of his visual dysfunction. With uncomplicated cataract surgery and lens implantation, it is my expectation that his visual function and quality of life will improve, significantly. The risks, benefits, alternatives, personnel and complications of cataract surgery with lens implantation were discussed with Cleve Gonzáles Jr. in detail. he appeared to understand and asked that I proceed with plans for surgery. PHYSICAL EXAM: Vital Signs: Blood pressure 127/69, pulse (!) 46. Respiratory: Normal breath sounds, no wheezing. CARD: Normal heart sounds 1 AND 2, normal sinus rhythm. 2. Combined form of age-related cataract, left eye - ICD9: 366.19, ICD10: H25.812 - Plan cataract surgery left eye after right eye is stable. 3. Regular astigmatism of both eyes - ICD9: 367.21, ICD10: H52.223 - Patient educated on options for correction of astigmatism by Toric Intraocular lens vs correction in glasses post operatively. Patient wishes to have correction done in glasses. 4. Bradycardia - ICD9: 427.89, ICD10: R00.1 - Patient was seen by Dr. Conroy and he states patient is low cardiac risk for procedure 5. Benign essential hypertension - ICD9: 401.1, ICD10: I10 6. Abdominal aortic aneurysm (AAA) without rupture (HCC) - ICD9: 441.4, ICD10: I71.4 - Continue to monitor with primary care physician Napoleon Dobbs MD I have confirmed and edited as necessary the relevant ophthalmic history, review of systems, surgical history, and ophthalmological examination findings as obtained by the ophthalmic technical staff. I have seen and examined Cleve Gonzáles Jr.. I have discussed the examination findings, diagnosis, and treatment options with Cleve Gonzáles Jr. and/or his family. I have also reviewed and agree with the assessment and plan as stated above and agree with all its relevant components. I gave the patient the opportunity to ask questions about the findings, diagnosis, and treatment options. [facility] 06-29-2021 Note HNO ID: [id number] Author: Napoleon Dobbs MD Service: ? Author Type: Physician Type: Progress Notes Filed: 06/29/2021 10:09 AM Note Text: ASSESSMENT/PLAN: 1. Combined forms of age-related cataract of right eye - ICD9: 366.19, ICD10: H25.811 (primary diagnosis) 2. Regular astigmatism of right eye - ICD9: 367.21, ICD10: H52.221 3. Combined form of age-related cataract, left eye - ICD9: 366.19, ICD10: H25.812 4. Regular astigmatism of left eye - ICD9: 367.21, ICD10: H52.222 Blood pressure 127/69, pulse (!) 46. Cataract Presurgical Documentation Cataract: Both eyes Patient reported symptoms: Associated symptoms Positive for: Blurred Vision, decreased vision, difficulty with reading, difficulty with watching television, halos, glare Negative for: Itching, flashes, floaters, tearing, dryness, burning Current Visual Acuity: Right Eye Distance CC 20/60 Left Eye Distance CC 20/50 Best Corrected Vision Right Eye 20/50 Best Corrected Vision Left Eye 20/40 Glare Testing: Right Eye Medium 20/80 Left Eye Medium 20/80 Visual Function: Cleve Gonzáles Jr. states that the decline in vision from the cataract impedes the ability to read, watch television, golfing, driving at night, as well as other activities of daily living. Cleve Gonzáles Jr. has confirmed that he is no longer able to function adequately on a day-to-day basis because of his current visual condition. Further, it is my medical opinion that the cataract is the primary cause, or at least a significantly contributory cause of his visual dysfunction. With uncomplicated cataract surgery and lens implantation, it is my expectation that his visual function and quality of life will improve, significantly. The risks, benefits, alternatives, personnel and complications of cataract surgery with lens implantation were discussed with Cleve Gonzáles Jr. in detail. he appeared to understand and asked that I proceed with plans for surgery. Use medications as directed: Current Ophthalmic Meds fluorometholone (FML LIQUID FILM) 0.1 % ophthalmic suspension Use 1 Drop in both eyes three times daily. Systane Complete Artificial Tears - Use 1 Drop into both eyes three times a day. Reviewed Dr. Palumbo's notes and examination today Follow up in 2 to 3 weeks repeat Ascan, discuss Toric lens 5. Bradycardia - ICD9: 427.89, ICD10: R00.1 6. Benign essential hypertension - ICD9: 401.1, ICD10: I10 7. Abdominal aortic aneurysm (AAA) without rupture (HCC) - ICD9: 441.4, ICD10: I71.4 Patient is under the care of Dr. Conroy, recently had EKG and exam Obtain clearance prior to cataract surgery Napoleon Dobbs MD I have confirmed and edited as necessary the relevant ophthalmic history, review of systems, surgical history, and ophthalmological examination findings as obtained by the ophthalmic technical staff. I have seen and examined Cleve Gonzáles Jr.. I have discussed the examination findings, diagnosis, and treatment options with Cleve Gonzáles Jr. and/or his family. I have also reviewed and agree with the assessment and plan as stated above and agree with all its relevant components. I gave the patient the opportunity to ask questions about the findings, diagnosis, and treatment options. [facility] 06-18-2021 History of Present illness Narrative Patient Name: Cleve Gonzáles Jr. MR #: [id number] Interventional Cardiology Dandy Conroy MD, [facility] 06/18/21 Dear Lamonte Orellana MD, Cleve Gonzáles Jr. was seen in follow up for : Problem Bradycardia Aaa (Abdominal Aortic Aneurysm) (Hcc) 4.2 cm 05/2021 Hyperlipidemia Coronary Artery Disease PTCA- 1992- Jamie -- sent to [employer] from [place]( ? NSTMI-- EKG lateral subendo ischemia and old IMI, RBBB,LAHB)--3.0 x 22 Resolute Assessment and Plan Coronary artery disease Doing well, Medications reviewed and recommended to continue asa and can stop Brillinta Followup [address] [facility] Bradycardia Hr 48 cut toprol to 12.5 mg-- AAA (abdominal aortic aneurysm) (HCC) Stable on recent US Thank you or allowing me to participate in the care of your patients. No orders of the defined types were placed in this encounter. Return in about 1 year (around 06/18/2022). EKG:Normal sinus rhythm. Subjective: Cleve Gonzáles is a 71 y.o. y/o male : No issues Denies chest discomfort, sob, palpitations, pnd, orthopnea,edema or syncope. Past History and Exam PMH: Past Medical History: Diagnosis Date Cancer (HCC) skin ca Coronary artery disease GERD (gastroesophageal reflux disease) Hyperlipidemia Hypertension Myocardial infarction (HCC) 2019 PARMD OA (osteoarthritis) Physical exam: BP 147/71 (BP Location: Left arm, Patient Position: Sitting) Pulse (!) 48 Ht 5' 7 Wt 70.8 kg (156 lb) SpO2 94% BMI 24.43 kg/m General: No acute distress, alert, and oriented x3. HEENT: Normocephalic, nl conjunctiva Neck: Supple, no gross thyromegaly,no palpable neck adenopathy Cardiovascular: regular rate and rhythm. no murmurs, .No JVD, No Carotid Bruits, no LE edema :Respiratory: Clear to auscultation bilaterally without wheezes, rhonchi, or rales Abdominal: soft, nontender, nondistended,no gross HSM or masses noted. Skin: Normal turgor,no major peripheral rashes noted. Extremities : No clubbing, cyanosis Neurological: Cranial nerves 2 through 12 intact grossly. No focal neurological deficits noted. Psych: Normal mood and affect. ROS/MA were reviewed Home Medications: Patient's Medications New Prescriptions No medications on file Previous Medications ASPIRIN 81 MG EC TABLET Take 81 mg by mouth daily . ATORVASTATIN (LIPITOR) 40 MG TABLET Take 1 (one) tablet (40 mg total) by mouth daily . BRILINTA 90 MG TAB TABLET Take 90 mg by mouth 2 (two) times a day . LISINOPRIL (PRINIVIL,ZESTRIL) 2.5 MG TABLET Take 1 (one) tablet (2.5 mg total) by mouth daily . NITROGLYCERIN (NITROSTAT) 0.[address] 1 (one) tablet (0.4 mg total) under the tongue every 5 (five) minutes as needed for chest pain . Modified Medications Modified Medication Previous Medication METOPROLOL SUCCINATE (TOPROL-XL) 25 MG 24 HR TABLET metoprolol succinate (TOPROL-XL) 25 MG 24 hr tablet Take 0.5 (one-half) tablet (12.5 mg total) by mouth daily . Take 1 (one) tablet (25 mg total) by mouth daily . Discontinued Medications No medications on file Review of Systems Constitutional: Negative for diaphoresis, malaise/fatigue, weight gain and weight loss. HENT: Negative for hearing loss, nosebleeds and tinnitus. Eyes: Negative for blurred vision and visual disturbance. Cardiovascular: Negative for chest pain, claudication, cyanosis, dyspnea on exertion, irregular heartbeat, leg swelling, near-syncope, orthopnea, palpitations, paroxysmal nocturnal dyspnea and syncope. Respiratory: Negative for hemoptysis, shortness of breath and snoring. Endocrine: Negative for cold intolerance and heat intolerance. Hematologic/Lymphatic: Does not bruise/bleed easily. Skin: Negative for flushing, poor wound healing and rash. Musculoskeletal: Negative for back pain, muscle weakness and myalgias. Gastrointestinal: Negative for abdominal pain, change in bowel habit, melena, nausea and vomiting. Genitourinary: Negative for decreased libido and hematuria. Neurological: Negative for loss of balance and numbness. Psychiatric/Behavioral: Negative for memory loss. The patient is not nervous/anxious. documented in this encounter [facility] 06-18-2021 Miscellaneous Notes Associated Problem(s): AAA (abdominal aortic aneurysm) (HCC) Stable on recent US Associated Problem(s): Bradycardia Hr 48 cut toprol to 12.5 mg-- Associated Problem(s): Hyperlipidemia Per Dr Orellana and [facility] Associated Problem(s): Coronary artery disease Doing well, Medications reviewed and recommended to continue asa and can stop Brillinta Followup 1 year documented in this encounter [facility] 05-01-2021 History of Present illness Narrative Mr Gonzáles is a 71-year-old man with history of hyperlipidemia, hypertension, and bladder cancer found to have AAA incidentally on CT urography for follow-up of bladder CA.Recent CT scan showed a AAA measuring 4.7x4.4 cm in AP diameter, previously measuring 4.4x4.1 cm last year.Denies abdominal pain, leg pain, chest pain or shortness of breath.No family history of aneurysms or sudden . [facility] Work Phone: 04-29-2021 History of Present illness Narrative Mr Gonzáles is a 71-year-old man with history of hyperlipidemia, hypertension, and bladder cancer found to have AAA incidentally on CT urography for follow-up of bladder CA.Recent CT scan showed a AAA measuring 4.7x4.4 cm in AP diameter, previously measuring 4.4x4.1 cm last year.Denies abdominal pain, leg pain, chest pain or shortness of breath.No family history of aneurysms or sudden . [id number] Work Phone: [facility] Coronary artery disease involving tunica-biloxi coronary artery of tunica-biloxi heart without angina pectoris Mixed hyperlipidemia Bradycardia Other specified cardiac dysrhythmias Abdominal aortic aneurysm (AAA) without rupture (HCC) [facility] Routine general medical examination at health care facility- Primary Routine general medical examination at a health care facility Coronary artery disease involving tunica-biloxi coronary artery of tunica-biloxi heart without angina pectoris Abdominal aortic aneurysm (AAA) without rupture, unspecified part (CMS/HCC) Primary hypertension Unspecified essential hypertension Gastroesophageal reflux disease without esophagitis Esophageal reflux Malignant neoplasm of urinary bladder, unspecified site (CMS/HCC) Benign prostatic hyperplasia without lower urinary tract symptoms Hyperlipemia, mixed Mixed hyperlipidemia Prostate cancer screening Special screening for malignant neoplasm of prostate documented in this encounter [facility] Work Phone: Evaluation note* Diagnosis Abdominal aortic aneurysm, without rupture, unspecified (CMS/HCC) documented in this encounter [facility] Work Phone: History of Present illness Narrative* Hypertension - Takes medication without side effects. No CP/SOB/Palpitations. Follows a no added salt diet. Counseled diet, activity and weight loss. * Also is having some insomnia used his Ambien and it did help her with sleep. We will not startthat today but will try trazodone 1 or 2 pills at bedtime * His problem is he feels like he has a feeling of something inside his throat occasionally when he swallows just spit or some liquid. No worsening with food. No dysphagia, no blood in the stool or black or tarry stools no obvious heartburn symptoms. * GERD is an active diagnosis, but he said he has not had GERD symptoms in 20 years. * Also on the CT done in 2019, showed that he had a small hiatal hernia. * Also he had been some losing some weight over the last year, but that was purposeful and trying to eat less and to get his weight down. * Talked about ear nose and throat referral to take a look at the upper part of the throat and voice box, also referral to GI for possible EGD. * We will start with pantoprazole once a day taken on an empty stomach half hour to an hour before meal. * Office visit 1 month. * Talked about lab work, but he gets blood test routinely done through the [facility]. Last was done about February or March. [facility] Work Phone: History of Present illness Narrative* The patient is being seen for the subsequent annual wellness visit. * Past Medical, Surgical and Family History: reviewed and updated in chart. * Medications and Supplements: Review of all medications by a prescribing practitioner or clinical pharmacist (such as prescriptions, OTCs, herbal therapies and supplements) documented in the medical record. * No, the patient is not using opioids. * Patient Self Assessment of Health Status: good. * Tobacco use: User * Alcohol use: Non-User * Illicit drug use: Non-User * Current diet: well balanced diet. * Exercise Frequency: regularly. * Depression/Suicide Screening: . * During the past 2 weeks, the patient has not felt down, depressed or hopeless. * During the past 2 weeks, the patient has not felt little interest or pleasure in doing things. * Hearing Impairment: Patient has significant hearing impairment, bilaterally, He uses a hearing aid. * Cognitive Impairment: No cognitive impairment observed. * Bathing: performs independently. * Dressing: performs independently. * Walking: performs independently. * Managing Finances: performs independently. * Shopping: performs independently. * Managing Medications: performs independently. * Housework / Basic Home Maintenance: performs independently. * Falls Risk Screening:. CLEVE has not fallen in the last 6 months. * Home safety risk factors: none. * Advance directives:. Advance Care Planning discussed and documented in the medical record, patient did not wish or was not able to name a surrogate decision maker or provide an advance care plan. Patient has no living will. Placed in chart. Patient has no healthcare POA. Placed in chart. * Patient's End of Life Decisions: End of life decisions were not reviewed with the patient. I do notagree to follow the patient's decisions. * No headache, chest pain, shortness of breath, dizziness, lightheadedness, or edema * HBP not checking, had CT done * gets Rx from [facility] Work Phone: History of Present illness Narrative* The patient is being seen for the subsequent annual wellness visit. * Past Medical, Surgical and Family History: reviewed and updated in chart. * Medications and Supplements: Review of all medications by a prescribing practitioner or clinical pharmacist (such as prescriptions, OTCs, herbal therapies and supplements) documented in the medical record. * No, the patient is not using opioids. * Patient Self Assessment of Health Status: good. * Tobacco use: User * Alcohol use: Non-User * Illicit drug use: Non-User * Current diet: well balanced diet. * Exercise Frequency: regularly. * Depression/Suicide Screening: . * During the past 2 weeks, the patient has not felt down, depressed or hopeless. * During the past 2 weeks, the patient has not felt little interest or pleasure in doing things. * Hearing Impairment: Patient has significant hearing impairment, bilaterally, He uses a hearing aid. * Cognitive Impairment: No cognitive impairment observed. * Bathing: performs independently. * Dressing: performs independently. * Walking: performs independently. * Managing Finances: performs independently. * Shopping: performs independently. * Managing Medications: performs independently. * Housework / Basic Home Maintenance: performs independently. * Falls Risk Screening:. CLEVE has not fallen in the last 6 months. * Home safety risk factors: none. * Advance directives:. Advance Care Planning discussed and documented in the medical record, patient did not wish or was not able to name a surrogate decision maker or provide an advance care plan. Patient has no living will. Placed in chart. Patient has no healthcare POA. Placed in chart. * Patient's End of Life Decisions: End of life decisions were not reviewed with the patient. I do notagree to follow the patient's decisions. * No headache, chest pain, shortness of breath, dizziness, lightheadedness, or edema * HBP not checking, had CT done * gets Rx from [facility] Work Phone: Reason for referral (narrative)* Consultation (Routine) - Authorized Specialty Diagnoses / Procedures Referred By Contac t Referred To Contact Primary Care Diagnoses Routine general medical examination at health care facility Coronary artery disease involving tunica-biloxi coronary artery of tunica-biloxi heart without angina pectoris Abdominal aortic aneurysm (AAA) without rupture, unspecified part (CMS/HCC) Primary hypertension Gastroesophageal reflux disease without esophagitis Malignant neoplasm of urinary bladder, unspecified site (CMS/HCC) Benign prostatic hyperplasia without lower urinary tract symptoms Hyperlipemia, mixed Procedures Follow Up In Primary Care Lamonte Orellana MD [address] [place] [address] Referral ID Status Reason Start Date Expiration Date V isits Requested Visits Authorized [id number] Authorized 04/03/2023 09/30/2023 1 1 [facility] Work Phone: Summary Purpose Family History No Family History Records Found Mother Name Dates Details Family history of coronary a rtery disease(V17.3, Z82.49) Status:Active Family history of HTN (hyper tension), benign(401.1, I10) Status:Active Family history of diabetes m ellitus(V18.0, Z83.3) Status:Active Father Name Dates Details Family history of coronary a rtery disease(V17.3, Z82.49) Status:Active Family history of cerebrovas cular accident (CVA)(V17.1, Z82.3) Status:Active Mother Name Dates Details Family history of coronary a rtery disease(V17.3, Z82.49) Status:Active Family history of HTN (hyper tension), benign(401.1, I10) Status:Active Family history of diabetes m ellitus(V18.0, Z83.3) Status:Active Father Name Dates Details Family history of coronary a rtery disease(V17.3, Z82.49) Status:Active Family history of cerebrovas cular accident (CVA)(V17.1, Z82.3) Status:Active Sibling Name Dates Details Family history of coronary a rtery disease(V17.3, Z82.49) Status:Active Family history of S/P CABG ( coronary artery bypass graft)(V45.81, Z95.1) Status:Active Mother Name Dates Details Family history of HTN (hyper tension), benign(401.1, I10) Status:Active Family history of diabetes m ellitus(V18.0, Z83.3) Status:Active Family history of coronary a rtery disease(V17.3, Z82.49) Status:Active Family history of hyperlipid emia(V18.19, Z83.438) Status:Active Father Name Dates Details Family history of cerebrovas cular accident (CVA)(V17.1, Z82.3) Status:Active Family history of coronary a rtery disease(V17.3, Z82.49) Status:Active Unknown Family Member Name Dates Details HTN (hypertension), benign: Mother Status:Active Family history of diabetes m ellitus: Mother(V18.0, Z83.3) Status:Active Family history of cerebrovas cular accident (CVA): Father(V17.1, Z82.3) Status:Active Family history of coronary a rtery disease: Mother, Father, Sibling(V17.3, Z82.49) Status:Active Family history of hyperlipid emia: Mother(V18.19, Z83.438) Status:Active S/P CABG (coronary artery by pass graft): Sibling(V45.81, Z95.1) Status:Active Unknown Family Member Name Dates Details Family history of coronary a rtery disease: Mother, Father, Sibling(V17.3, Z82.49) Status:Active S/P CABG (coronary artery by pass graft): Sibling(V45.81, Z95.1) Status:Active Family history of hyperlipid emia: Mother(V18.19, Z83.438) Status:Active Family history of cerebrovas cular accident (CVA): Father(V17.1, Z82.3) Status:Active Family history of diabetes m ellitus: Mother(V18.0, Z83.3) Status:Active HTN (hypertension), benign: Mother Status:Active Unknown Family Member Name Dates Details HTN (hypertension), benign: Mother Status:Active Family history of diabetes m ellitus: Mother(V18.0, Z83.3) Status:Active Family history of cerebrovas cular accident (CVA): Father(V17.1, Z82.3) Status:Active Family history of coronary a rtery disease: Mother, Father, Sibling(V17.3, Z82.49) Status:Active Family history of hyperlipid emia: Mother(V18.19, Z83.438) Status:Active S/P CABG (coronary artery by pass graft): Sibling(V45.81, Z95.1) Status:Active Unknown Family Member Name Dates Details HTN (hypertension), benign: Mother Status:Active Family history of diabetes m ellitus: Mother(V18.0, Z83.3) Status:Active Family history of cerebrovas cular accident (CVA): Father(V17.1, Z82.3) Status:Active Family history of coronary a rtery disease: Mother, Father, Sibling(V17.3, Z82.49) Status:Active Family history of hyperlipid emia: Mother(V18.19, Z83.438) Status:Active S/P CABG (coronary artery by pass graft): Sibling(V45.81, Z95.1) Status:Active Unknown Family Member Name Dates Details Family history of coronary a rtery disease: Mother, Father, Sibling(V17.3, Z82.49) Status:Active Family history of cerebrovas cular accident (CVA): Father(V17.1, Z82.3) Status:Active Family history of diabetes m ellitus: Mother(V18.0, Z83.3) Status:Active HTN (hypertension), benign: Mother Status:Active S/P CABG (coronary artery by pass graft): Sibling(V45.81, Z95.1) Status:Active Family history of hyperlipid emia: Mother(V18.19, Z83.438) Status:Active Unknown Family Member Name Dates Details HTN (hypertension), benign: Mother Status:Active Family history of diabetes m ellitus: Mother(V18.0, Z83.3) Status:Active Family history of cerebrovas cular accident (CVA): Father(V17.1, Z82.3) Status:Active Family history of coronary a rtery disease: Mother, Father, Sibling(V17.3, Z82.49) Status:Active Family history of hyperlipid emia: Mother(V18.19, Z83.438) Status:Active S/P CABG (coronary artery by pass graft): Sibling(V45.81, Z95.1) Status:Active Unknown Family Member Name Dates Details Family history of coronary a rtery disease: Mother, Father, Sibling(V17.3, Z82.49) Status:Active Family history of hyperlipid emia: Mother(V18.19, Z83.438) Status:Active S/P CABG (coronary artery by pass graft): Sibling(V45.81, Z95.1) Status:Active Family history of cerebrovas cular accident (CVA): Father(V17.1, Z82.3) Status:Active Family history of diabetes m ellitus: Mother(V18.0, Z83.3) Status:Active HTN (hypertension), benign: Mother Status:Active Unknown Family Member Name Dates Details HTN (hypertension), benign: Mother Status:Active Family history of diabetes m ellitus: Mother(V18.0, Z83.3) Status:Active Family history of cerebrovas cular accident (CVA): Father(V17.1, Z82.3) Status:Active Family history of coronary a rtery disease: Mother, Father, Sibling(V17.3, Z82.49) Status:Active Family history of hyperlipid emia: Mother(V18.19, Z83.438) Status:Active S/P CABG (coronary artery by pass graft): Sibling(V45.81, Z95.1) Status:Active Unknown Family Member Name Dates Details HTN (hypertension), benign: Mother Status:Active Family history of diabetes m ellitus: Mother(V18.0, Z83.3) Status:Active Family history of cerebrovas cular accident (CVA): Father(V17.1, Z82.3) Status:Active Family history of coronary a rtery disease: Mother, Father, Sibling(V17.3, Z82.49) Status:Active Family history of hyperlipid emia: Mother(V18.19, Z83.438) Status:Active S/P CABG (coronary artery by pass graft): Sibling(V45.81, Z95.1) Status:Active Unknown Family Member Name Dates Details Family history of coronary a rtery disease: Mother, Father, Sibling(V17.3, Z82.49) Status:Active S/P CABG (coronary artery by pass graft): Sibling(V45.81, Z95.1) Status:Active Family history of hyperlipid emia: Mother(V18.19, Z83.438) Status:Active Family history of cerebrovas cular accident (CVA): Father(V17.1, Z82.3) Status:Active Family history of diabetes m ellitus: Mother(V18.0, Z83.3) Status:Active HTN (hypertension), benign: Mother Status:Active Unknown Family Member Name Dates Details HTN (hypertension), benign: Mother Status:Active Family history of diabetes m ellitus: Mother(V18.0, Z83.3) Status:Active Family history of cerebrovas cular accident (CVA): Father(V17.1, Z82.3) Status:Active Family history of coronary a rtery disease: Mother, Father, Sibling(V17.3, Z82.49) Status:Active Family history of hyperlipid emia: Mother(V18.19, Z83.438) Status:Active S/P CABG (coronary artery by pass graft): Sibling(V45.81, Z95.1) Status:Active Unknown Family Member Name Dates Details Family history of hyperlipid emia: Mother(V18.19, Z83.438) Status:Active S/P CABG (coronary artery by pass graft): Sibling(V45.81, Z95.1) Status:Active Family history of coronary a rtery disease: Mother, Father, Sibling(V17.3, Z82.49) Status:Active Family history of cerebrovas cular accident (CVA): Father(V17.1, Z82.3) Status:Active Family history of diabetes m ellitus: Mother(V18.0, Z83.3) Status:Active HTN (hypertension), benign: Mother Status:Active Unknown Family Member Name Dates Details HTN (hypertension), benign: Mother Status:Active Family history of diabetes m ellitus: Mother(V18.0, Z83.3) Status:Active Family history of cerebrovas cular accident (CVA): Father(V17.1, Z82.3) Status:Active Family history of coronary a rtery disease: Mother, Father, Sibling(V17.3, Z82.49) Status:Active Family history of hyperlipid emia: Mother(V18.19, Z83.438) Status:Active S/P CABG (coronary artery by pass graft): Sibling(V45.81, Z95.1) Status:Active Unknown Family Member Name Dates Details HTN (hypertension), benign: Mother Status:Active Family history of diabetes m ellitus: Mother(V18.0, Z83.3) Status:Active Family history of cerebrovas cular accident (CVA): Father(V17.1, Z82.3) Status:Active Family history of coronary a rtery disease: Mother, Father, Sibling(V17.3, Z82.49) Status:Active Family history of hyperlipid emia: Mother(V18.19, Z83.438) Status:Active S/P CABG (coronary artery by pass graft): Sibling(V45.81, Z95.1) Status:Active Unknown Family Member Name Dates Details HTN (hypertension), benign: Mother Status:Active Family history of diabetes m ellitus: Mother(V18.0, Z83.3) Status:Active Family history of cerebrovas cular accident (CVA): Father(V17.1, Z82.3) Status:Active Family history of coronary a rtery disease: Mother, Father, Sibling(V17.3, Z82.49) Status:Active Family history of hyperlipid emia: Mother(V18.19, Z83.438) Status:Active S/P CABG (coronary artery by pass graft): Sibling(V45.81, Z95.1) Status:Active Unknown Family Member Name Dates Details HTN (hypertension), benign: Mother Status:Active Family history of diabetes m ellitus: Mother(V18.0, Z83.3) Status:Active Family history of cerebrovas cular accident (CVA): Father(V17.1, Z82.3) Status:Active Family history of coronary a rtery disease: Mother, Father, Sibling(V17.3, Z82.49) Status:Active Family history of hyperlipid emia: Mother(V18.19, Z83.438) Status:Active S/P CABG (coronary artery by pass graft): Sibling(V45.81, Z95.1) Status:Active Advance Directives No Advanced Directives Records FoundDocuments on File Type Date Recorded Patient Application Tester Expl anation Advance Directives and Living Will Documents on File Type Date Recorded Patient Application Tester Expl anation Advance Directives and Livin g Will 05/28/2021 10:59 AM Documents on File Type Date Recorded Patient Application Tester Expl anation Advance Directives and Livin g Will 05/28/2021 10:59 AM Instructions Name Dates Details Instructions not documented Name Dates Details Instructions not documented Name Dates Details Instructions not documented History of Present Illness * Dandy Conroy MD - 07/19/2019 11:27 AM EDT Patient Name: Cleve Gonzáles Jr. Admit Date: MR #: [id number] : 1950 Physicians: Lamonte Orellana MD (Family); Joe Hilton DO (Referring) Interventional Cardiology Dandy Conroy MD, [facility] 07/19/19 Dear Lamonte Orellana MD, Cleve Gonzáles Jr. was seen today for: Problem Coronary Artery Disease PTCA- 1993- Jamie -- sent to [facility] from [place]( ? NSTMI-- EKG lateral subendo ischemia and old IMI, RBBB,LAHB)--3.0 x 22 Resolute Assessment and Plan Coronary artery disease Presented with 5 months of exertional CP then had bad spell on golf [place] Had stent at [facility]-- cannot afford Brillinta- [facility] No symptoms-- will await data before I can have pt go back to work--- did not do Cardiac rehab Thank you again, for allowing me to participate in the care of your patients. Should you have any questions, please do not hesitate to contact me. No orders of the defined types were placed in this encounter. Return in about 1 year (around 07/19/2020). History of present illness Cleve Gonzáles is a 69 y.o. y/o male presenting with c/o reestablishing cardiology care. I took careof him in the early when he had a balloon angioplasty. Since that time he is done extremely well. The past 5 months he has been having some exertional chest discomfort, specifically when golfing.3 weeks ago had a bad spell on the 5th hole and went to [facility] ER. He had an abnormal ekg, positive trops and was sent to [facility] where a JONATHAN was placed. I do not have any info from there. He comes for follow up EKG: Not Done Past History Past Medical History: Diagnosis Date Cancer (HCC) skin ca Coronary artery disease GERD (gastroesophageal reflux disease) Hyperlipidemia Hypertension Myocardial infarction (HCC) 2019 [facility] OA (osteoarthritis) Past Surgical History: Procedure Laterality Date ANGIOPLASTY 1996 CARDIAC CATHETERIZATION 2018 [facility] COLONOSCOPY CORON[facility] x1 stent, unknown vessel (2019) ESOPHAGOGASTRODUODENOSCOPY SKIN LESIONS History reviewed. No pertinent family history. Social History Socioeconomic History Marital status: Spouse name: Not on file Number of children: Not on file Years of education: Not on file Highest education level: Not on file Occupational History Not on file Social Needs Financial resource strain: Not on file Food insecurity: Worry: Not on file Inability: Not on file Transportation needs: Medical: Not on file Non-medical: Not on file Tobacco Use Smoking status: Current Some Day Smoker Packs/day: 0.00 Smokeless tobacco: Never Used Tobacco comment: occasional cigar Substance and Sexual Activity Alcohol use: Yes Comment: 1-2x year Drug use: Never Sexual activity: Not on file Lifestyle Physical activity: Days per week: Not on file Minutes per session: Not on file Stress: Not on file Relationships Social connections: Talks on phone: Not on file Gets together: Not on file Attends samaritan service: Not on file Active member of club or organization: Not on file Attends meetings of clubs or organizations: Not on file Relationship status: Not on file Other Topics Concern Not on file Social History Narrative Not on file Allergy Information: I have reviewed the patient's allergies. Patient has no known allergies. Review of Systems: The following system(s) were reviewed and pertinent findings noted: All other systems reviewed and negative other than HPI Physical Examination Vital Signs: BP 142/73 (BP Location: Left arm, Patient Position: Sitting) Pulse (!) 50 Ht 5' 7 Wt 74.4 kg(164 lb) SpO2 97% BMI 25.69 kg/m General: No acute distress, alert, and oriented x3. HEENT: Normocephalic, normal oral mucosa, normal conjunctiva Neck: Supple, no thyromegaly,no palpable adenopathy Cardiovascular: Regular rate and rhythm. No murmurs, .No JVD, No Carotid Bruits, no LE edema : Respiratory: Clear to auscultation bilaterally without wheezes, rhonchi, or crackles noted. Abdominal: Soft, nontender, nondistended, no hsm Skin: Normal turgor, well-hydrated, no rashes noted. Extremities : No clubbing cyanosis Neurological: Cranial nerves 2 through 12 intact grossly. No focal neurological deficits noted. Psych: Normal mood and affect. Medications Home Medications: Patient's Medications New Prescriptions No medications on file Previous Medications ASPIRIN 81 MG EC TABLET Take 81 mg by mouth daily . ATORVASTATIN (LIPITOR) 40 MG TABLET Take 40 mg by mouth daily . BRILINTA 90 MG TAB TABLET Take 90 mg by mouth 2 (two) times a day . LISINOPRIL (PRINIVIL,ZESTRIL) 2.5 MG TABLET Take 2.5 mg by mouth daily . METOPROLOL SUCCINATE (TOPROL-XL) 25 MG 24 HR TABLET Take 25 mg by mouth daily . Modified Medications No medications on file Discontinued Medications No medications on file * Ilsa Aguilera MA - 07/19/2019 11:06 AM EDT Review of Systems Constitution: Negative for diaphoresis, malaise/fatigue, weight gain and weight loss. HENT: Negative for hearing loss, nosebleeds and tinnitus. Eyes: Negative for blurred vision and visual disturbance. Cardiovascular: Negative for chest pain, claudication, cyanosis, dyspnea on exertion, irregular heartbeat, leg swelling, near-syncope, orthopnea, palpitations, paroxysmal nocturnal dyspnea and syncope. Respiratory: Negative for hemoptysis, shortness of breath and snoring. Endocrine: Negative for cold intolerance and heat intolerance. Hematologic/Lymphatic: Does not bruise/bleed easily. Skin: Negative for flushing, poor wound healing and rash. Musculoskeletal: Negative for back pain, muscle weakness and myalgias. Gastrointestinal: Negative for abdominal pain, change in bowel habit, melena, nausea and vomiting. Genitourinary: Negative for decreased libido and hematuria. Neurological: Negative for loss of balance and numbness. Psychiatric/Behavioral: Negative for memory loss. The patient is not nervous/anxious. documented in this encounter* Dandy Conroy MD - 05/29/2020 9:54 AM EDT Patient Name: Cleve Gonzáles Jr. [facility] MR #: [id number] Interventional Cardiology Dandy Conroy MD, [facility] 05/29/20 Dear Lamonte Orellana MD, Cleve Gonzáles Jr. was seen in follow up for : Problem Hyperlipidemia Hypertension Coronary Artery Disease PTCA- 1992- Jamie -- sent to [facility] from [place]( ? NSTMI-- EKG lateral subendo ischemia and old IMI, RBBB,LAHB)--3.0 x 22 Resolute Assessment and Plan Coronary artery disease No angina Discussed I like to to keep on Brillinta for 2 years Doing well, Medications reviewed and will continue current meds Followup 1 year Hyperlipidemia Not seeing PCP will get labs today Hypertension Good BP control Thank you or allowing me to participate in the care of your patients. Orders Placed This Encounter Procedures Lipid Panel Hepatic Function Panel CBC and Differential Basic Metabolic Panel Return in about 1 year (around 05/29/2021). EKG:not done Subjective: Had bladder tumor Denies chest discomfort, sob, palpitations, pnd, orthopnea,edema or syncope. Past History and Exam PMH: Past Medical History: Diagnosis Date Cancer (HCC) skin ca Coronary artery disease GERD (gastroesophageal reflux disease) Hyperlipidemia Hypertension Myocardial infarction ([facility]) 2019 [facility] OA (osteoarthritis) Physical exam: BP 126/72 (BP Location: Left arm, Patient Position: Sitting) Pulse 63 Ht 5' 7 Wt 77.4 kg (170 lb 11.2 oz) SpO2 94% BMI 26.74 kg/m General: No acute distress, alert, and oriented x3. HEENT: Normocephalic, normal oral mucosa, nl conjunctiva Neck: Supple, no gross thyromegaly,no palpable adenopathy Cardiovascular: Regular rate and rhythm. no murmurs, .No JVD, No Carotid Bruits, no LE edema :Respiratory: Clear to auscultation bilaterally without wheezes, rhonchi, or rales Abdominal: soft, nontender, nondistended,no gross HSM or masses noted. Skin: Normal turgor, well-hydrated, no rashes noted. Extremities : No clubbing cyanosis Neurological: Cranial nerves 2 through 12 intact grossly. No focal neurological deficits noted. Psych: Normal mood and affect. ROS/MA were reviewed Home Medications: Patient's Medications New Prescriptions No medications on file Previous Medications ASPIRIN 81 MG EC TABLET Take 81 mg by mouth daily . ATORVASTATIN (LIPITOR) 40 MG TABLET Take 1 (one) tablet (40 mg total) by mouth daily . BRILINTA 90 MG TAB TABLET Take 90 mg by mouth 2 (two) times a day . LISINOPRIL (PRINIVIL,ZESTRIL) 2.5 MG TABLET Take 1 (one) tablet (2.5 mg total) by mouth daily . METOPROLOL SUCCINATE (TOPROL-XL) 25 MG 24 HR TABLET Take 1 (one) tablet (25 mg total) by mouth daily . NITROGLYCERIN (NITROSTAT) 0.[address] 1 (one) tablet (0.4 mg total) under the tongue every 5 (five) minutes as needed for chest pain . Modified Medications No medications on file Discontinued Medications No medications on file * Ilsa Aguilera MA - 05/29/2020 9:47 AM EDT Review of Systems Constitution: Negative for diaphoresis, malaise/fatigue, weight gain and weight loss. HENT: Negative for hearing loss, nosebleeds and tinnitus. Eyes: Negative for blurred vision and visual disturbance. Cardiovascular: Negative for chest pain, claudication, cyanosis, dyspnea on exertion, irregular heartbeat, leg swelling, near-syncope, orthopnea, palpitations, paroxysmal nocturnal dyspnea and syncope. Respiratory: Negative for hemoptysis, shortness of breath and snoring. Endocrine: Negative for cold intolerance and heat intolerance. Hematologic/Lymphatic: Does not bruise/bleed easily. Skin: Negative for flushing, poor wound healing and rash. Musculoskeletal: Negative for back pain, muscle weakness and myalgias. Gastrointestinal: Negative for abdominal pain, change in bowel habit, melena, nausea and vomiting. Genitourinary: Negative for decreased libido and hematuria. Neurological: Negative for loss of balance and numbness. Psychiatric/Behavioral: Negative for memory loss. The patient is not nervous/anxious. documented in this encounter Assessments Diagnosis Status post left heart catheterization Coronary artery disease involving tunica-biloxi coronary artery of tun[place]-bil[place]i heart without angina pectoris Diagnosis Coronary artery disease involving tunica-biloxi coronary artery of tun[place]-bil[place] heart without angina pectoris Mixed hyperlipidemia Essential hypertension Unspecified essential hypertension Hospital Course Note Send Summary: Discharge Summ mihir Providers: Provider RoleProvider Name David Chen Arthur PrimaryBoyd, Christopher AttendingAl-Ghamdi, Abdullah Note Recipients: Lamonte Orellana MD Swift, Mark, DO Ulatowski, Arthur, DO - [phone] [Preferred] Discharge: Summary: Admission Date: .01-Jul-2019 15:25:00 Discharge Date: 03-Jul-2019 Attending Physician at Discharge: Silvestre Lozano Admission Reason: Myocardial infarction(1) Final Discharge Diagnoses: NSTEMI, CAD, h/o smoking cigars, HFrEF Procedures: cardiac cath , LAD stent placement Condition at Discharge: Satisfactory Disposition at Discharge: .Home Vital Signs: T PRBPSpO2 [id number]/6895% Date/Time07/03 9: 9: 9: 9: 9:00 Range(36.6C - 37.1C ) (60 - 74 ) (16 - 16 ) (93 - 105 )/ (57 - 68 ) (95% - 98% ) Highest temp of 37.1 C was recorded at 07/02 20:00 Physical Exam: General appearance: Well developed, not in pain or distress, in no respiratory distress HEENT: Atraumatic/normocephal (more content not included)... Chief Complaint BLADDER CANCERFEELS SOMETHING IN THROAT WHEN SWALLOWING X 1 MO- DENIES ANY PAIN/SORENESSBLADDER CANCERBLADDER CANCERWELLNESS DISCUSS AAAWELLNESS DISCUSS AAAnpv aaa hx of cad, abdominal aneurysmnpv aaa hx of cad, abdominal aneurysmnpv aaa hx of cad, abdominal aneurysm6 MNTH CK AAA Reason for Referral Specialty Diagnoses / Procedures Referred By Contac t Referred To Contact Cardiology Diagnoses Coronary artery disease involving tunica-biloxi coronary artery of tun[place]-bil[place]i heart without angina pectoris Procedures ECG 12 Lead Dandy Conroy MD [address] [facility] [address] [place] [id number] Referral ID Status Reason Start Date Expiration Date V isits Requested Visits Authorized [id number] Authorized 06/18/2021 06/18/2022 1 1 Specialty Diagnoses / Procedures Referred By Contac t Referred To Contact Cardiology Diagnoses Abdominal aortic aneurysm, without rupture, unspecified (CMS/HCC) Procedures Vascular US aorta iliac duplex complete Alem Wilcox, PAINTER AND PAPERHANGER APPRENTICE-WORKFORCE MANAGER, DNP [address] [facility] [address] [place] [address] Referral ID Status Reason Start Date Expiration Date Visits Requested Visits Authorized [id number] Authorized Perform Procedure 07/12/2023 01/08/2024 1 1 Additional Source Comments (unrecognized sect ion and content) No Status Records FoundNo Status Records FoundNo Status Records FoundNo Status Records FoundNo Status Records FoundNo Status Records FoundNo Status Records FoundNo Status Records FoundNo Status Records FoundNo Status Records FoundNo Status Records Found INFORMATION SOURCE (unrecogn ized section and content) DATE CREATED AUTHOR AUTHOR'S ORGANIZ ATION 07/31/2019 [facility] DATE CREATED AUTHOR AUTHOR'S ORGANIZ ATION 06/19/2021 [facility] DATE CREATED AUTHOR AUTHOR'S ORGANIZ ATION 07/01/2021 [facility] DATE CREATED AUTHOR AUTHOR'S ORGANIZ ATION 11/30/2021 [facility] DATE CREATED AUTHOR AUTHOR'S ORGANIZ ATION 04/08/2023 [facility] DATE CREATED AUTHOR AUTHOR'S ORGANIZ ATION 04/08/2023 [facility] DATE CREATED AUTHOR AUTHOR'S ORGANIZ ATION 04/22/2023 [facility] DATE CREATED AUTHOR AUTHOR'S ORGANIZ ATION 04/22/2023 [facility] DATE CREATED AUTHOR AUTHOR'S ORGANIZ ATION 10/15/2023 [facility] DATE CREATED AUTHOR AUTHOR'S ORGANIZ ATION 10/29/2023 [facility] Reason for Visit (unrecogniz ed section and content) Status Reason Specialty Diagnoses / Procedures Re ferred By Contact Referred To Contact Closed Specialty Services Required/Patien t's Best Interest Cardiology Diagnoses Status post left heart catheterization Joe Hilton, DO [address] [place] [address] Dandy Conroy MD [address] [place], [place] [id number] Reason Comments Annual Exam no complaints. medic ations reviewed- [facility] ref[facility] Reason Onset Date Comments Medication Refill 06/25/2021 Reason Comments Medicare Annual Wellness Visit [place] t Specialty Diagnoses / Procedures Referred By Samina perry Referred To Contact Cardiology Diagnoses Abdominal aortic aneurysm, without rupture, unspecified (CMS/[facility]) Procedures Vascular US aorta iliac duplex complete Alem Wilcox, PAINTER AND PAPERHANGER APPRENTICE-WORKFORCE MANAGER, DNP [address] [facility], [facility] [address] [place] [address] Referral ID Status Reason Start Date Expiration Date Visits Requested Visits Authorized [id number] Authorized Perform Procedure 07/12/2023 01/08/2024 1 1 Assessment & Plan Note - Dandy Conroy MD - 07/19/2019 11:19 AM EDTAssessment & Plan Note - Dandy Conroy MD - 05/29/2020 9:52 AM EDT Miscellaneous Notes (unrecog nized section and content) Associated Problem(s): Coronary artery disease Presented with 5 months of exertional CP then had bad spell on golf [place] Had stent at [facility]-- cannot afford Brillinta- [facility] Cd No symptoms-- will await data before I can have pt go back to work--- did not do Cardiac rehab documented in this encounter Associated Problem(s): Hypertension Good BP control Associated Problem(s): Hyperlipidemia Not seeing PCP will get labs today Associated Problem(s): Coronary artery disease No angina Discussed I like to to keep on Brillinta for 2 years Doing well, Medications reviewed and will continue current meds Followup 1 year documented in this encounter <item> Privacy Markings (unrecogniz ed section and content) Section Author: Janiya Gil PROHIBITION ON REDISCLOSURE OF CONFIDENTIAL INFORMATION This notice accompanies a disclosure of information concerning a client made to you with the consent of such client. Care Teams (unrecognized sec tion and content) Manager Operations Relationship Specialty Start Date End Date Lamonte Orellana MD [address] [place] [address] PCP - General Family Medicine 06/16/18 [place] [address] [place] [address] PCP - [facility] Attributed Provider 07/31/20 Manager Operations Relationship Specialty Start Date End Date Lamonte Orellana MD [address] [place] [address] PCP - General Family Medicine 06/16/18 Dandy Conroy MD [address] [address] PCP - [facility] Attributed Provider 07/31/20 Manager Operations Relationship Specialty Start Date End Date Lamonte Orellana MD [address] [place] [address] PCP - General 06/29/19 Lamonte Orellana MD [address] [place] [address] PCP - [facility] Attributed Provider 01/25/22 Manager Operations Relationship Specialty Start Date End Date Lamonte Orellana MD [address] [place] [address] PCP - [facility] Attributed Provider 01/25/22 Lamonte Orellana MD [address] [place] [address] PCP - General Family Medicine 10/02/23 FOR RECORDS PERTAINING TO PATIENTS WHO ARE OR HAVE BEEN ENROLLED IN A CHEMICAL DEPENDENCY/SUBSTANCEABUSE PROGRAM, SOME INFORMATION MAY BE OMITTED. This clinical summary was aggregated from multiple sources. Caution should be exercised in using it in the provision of clinical care. This summary normalizes information from multiple sources, and as a consequence, information in this document may materially change the coding, format and clinical context of patient data. In addition, data may be omitted in some cases. CLINICAL DECISIONS SHOULD BE BASED ON THE PRIMARY CLINICAL RECORDS. [facility] [employer] [facility]. provides no warranty or guarantee of the accuracy or completeness of information in this document.
[2024-01-09 06:09] LABS: HEPATITIS B SURFACE AG Negative (Negative); Hep C Antibodies Non Reactive (Non Reactive); Hepatitis A IgM Antibody Negative (Negative); Hepatitis B Core AB IgM Negative (Negative)
== END | disposition home or self-care (01) ==
PROVIDERS: PCP Family Medicine; Referring Provider Chiropractor; Visit Provider Chiropractor
DX: I25.10 Atherosclerotic heart disease of native coronary artery without angina pectoris (principal); B19.20 Unspecified viral hepatitis C without hepatic coma
CPT/HCPCS: 36415; 80053; 80074; 86803; 93306